=== PATIENT | male | born 1960 | race Caucasian/White ===

== ENCOUNTER 2016-06-26 14:17 | Emergency (ER) | payer BC ==
[2016-06-26 14:23] VITALS: TEMP 97.7
[2016-06-26] MEDS ORDERED: HYDROmorphONE/DILAUDID 1 MG/ML SYR IVP ONE (14:34)
[2016-06-26] MEDS ORDERED: ONDANSETRON 4 MG/2 ML VIAL IVP ONE (14:34)
--- NOTE | 2016-06-26 14:43 | EDPHY ---
H & P Stated Complaint: Kidney Stone Time Seen by Provider: 06/26/16 14:30 HPI/ROS: CHIEF COMPLAINT: right flank pain HISTORY OF PRESENT ILLNESS: 55-year-old male presents emergency department complaining of worsening right flank pain over the past 24 hours, radiates into his right lower quadrant and groin. Patient denies difficulty urinating, no fevers or chills, he reports nausea. Patient has a history of kidney stones and reports this feels similar to previous kidney stones. Patient denies loss of control of his bowel or bladder, no saddle anesthesias, no fevers. No radiation of pain down his legs, no leg weakness. REVIEW OF SYSTEMS: A comprehensive 10 point review of systems is otherwise negative aside from elements mentioned in the history of present illness. Source: Patient Exam Limitations: No limitations - Personal History Current Tetanus/Diphtheria Vaccine: Unsure Current Tetanus Diphtheria and Acellular Pertussis (TDAP): Unsure - Medical/Surgical History Hx Asthma: No Hx Chronic Respiratory Disease: No Hx Diabetes: No Hx Cardiac Disease: No Hx Renal Disease: No Hx Cirrhosis: No Hx Alcoholism: No Hx HIV/AIDS: No Hx Splenectomy or Spleen Trauma: No Other PMH: Kidney stones, L4-5 disc reconstruction, GERD, anxiety, chronic back pain, osteoarthritis r knee - Social History Smoking Status: Never smoked - Physical Exam Exam: Physical Exam Gen: Alert and Oriented, grimacing HEENT: PERRL, moist mucous membranes NECK: no meningismus CV: regular rate and regular rhythm PULM: CTAB, no wheezes ABDOMEN: Right lower quadrant tenderness to palpation BACK: Right CVA tenderness NEURO: Neurologically grossly intact EXTREMITIES: normal appearing SKIN: no rash or break in skin on exposed skin PSYCH: answers questions appropriately. Constitutional: Initial Vital Signs Temperature (C) 36.5 C 06/26/16 14:19 Heart Rate 63 06/26/16 14:19 Respiratory Rate 30 H 06/26/16 14:19 Blood Pressure 169/96 H 06/26/16 14:19 O2 Sat (%) 100 06/26/16 14:19 O2 Delivery Mode Room Air Allergies/Adverse Reactions: No Known Allergies Allergy (Verified 05/27/15 16:09) Home Medications: Medication Instructions Recorded ESTAZOLAM 09/23/14 Esomeprazole Magnesium [Nexium] 20 mg PO BID 09/23/14 Etodolac 09/23/14 Hydrocodone/APAP 5/325 [[place]ster 1 - 2 tab PO Q4H PRN #20 tab 09/23/14 5/325 (RX)] Hydrocodone/Acetaminophen 1 each PO 09/23/14 [Hydrocodon-Acetaminophen 5-325] Methocarbamol [Robaxin] 750 mg PO QID 09/23/14 Amoxicillin/Clavulanate Pot 875 mg PO BID 10 Days 05/27/15 [Augmentin 875Mg] Lidocaine 2% Viscous [Lidocaine 2% 5 ml PO Q6 PRN #120 ml 05/27/15 Viscous (RX)] guaiFENesin/CODEINE PHOS 5 - 10 ml PO HS #120 ml 05/27/15 [Robitussin AC] Hydrocodone/APAP 5/325 [[place] 1 tab PO Q4H PRN #7 tab 06/26/16 5/325] Ondansetron Odt [Zofran Odt] 4 mg PO Q6-8PRN PRN #8 tab 06/26/16 Tamsulosin HCl [Flomax 0.4 MG (*)] 0.4 mg PO DAILY #7 cap 06/26/16 Medical Decision Making ED Course/Re-evaluation: IV established, chemistry panel obtained, patient was given 1 mg of Dilaudid IV and 4 mg of Zofran IV. I have ordered a urinalysis. Patient is aware we need a urine sample. Urine shows 25-50 RBCs, no WBCs. Patient reports pain is down to 3/10 after Dilaudid and Zofran. Patient is given 15 mg of IV Toradol. He will be discharged home with Chester, Flomax, Zofran and Urology for follow-up. Patient is given strict return precautions. I doubt a infected stone due to patient's presentation. I have not ordered any imaging as the patient has a history of kidney stones and feels this is the same. - Data Points Laboratory Results: Laboratory Results 06/26/16 14:42 06/26/16 06/26/16 15:10 14:42 Sodium 144 mEq/L mEq/L (134-144) Potassium 3.9 mEq/L mEq/L (3.5-5.2) Chloride 107 mEq/L mEq/L (97-110) Carbon Dioxide 22 mEq/l mEq/l (22-31) Anion Gap 15 mEq/L mEq/L (8-16) BUN 15 mg/dL mg/dL (7-23) Creatinine 0.9 mg/dL mg/dL (0.7-1.3) Estimated GFR > 60 Glucose 148 mg/dL H mg/dL (70-100) Calcium 10.0 mg/dL mg/dL (8.5-10.4) Urine Color YELLOW Urine Appearance CLEAR Urine pH 7.0 (5.0-7.5) Ur Specific [place] 1.016 (1.002-1.030) Urine Protein NEGATIVE (NEGATIVE) Urine Ketones NEGATIVE (NEGATIVE) Urine Blood 2+ H (NEGATIVE) Urine Nitrate NEGATIVE (NEGATIVE) Urine Bilirubin NEGATIVE (NEGATIVE) Urine Urobilinogen NEGATIVE EU EU (0.2-1.0) Ur Leukocyte Esterase NEGATIVE (NEGATIVE) Urine RBC 25-50 /hpf H /hpf (0-3) Urine WBC 1-3 /hpf /hpf (0-3) Ur Epithelial Cells NONE SEEN /lpf /lpf (NONE-1+) Urine Mucus TRACE /lpf /lpf (NONE-1+) Ur Culture Indicated? NOT INDICATED (NI) Urine Glucose NEGATIVE (NEGATIVE) Medications Given: Discontinued Medications Hydromorphone HCl (Dilaudid) 1 mg IVP EDNOW ONE Stop: 06/26/16 14:35 Last Admin: 06/26/16 14:45 Dose: 1 mg Ketorolac Tromethamine (Toradol) 15 mg IVP EDNOW ONE Stop: 06/26/16 15:27 Last Admin: 06/26/16 15:33 Dose: 15 mg Ondansetron HCl (Zofran) 4 mg IVP EDNOW ONE Stop: 06/26/16 14:35 Last Admin: 06/26/16 14:55 Dose: 4 mg Departure - Departure Disposition: Home, Routine, Self-Care Clinical Impression: Acute right flank pain Condition: Good Instructions: Kidney Stones (ED), Flank Pain (ED) Additional Instructions: Kidney stone: Take Chester as needed for severe pain. Use Zofran as needed for nausea. Take ibuprofen 600 mg every 6-8 hours as needed for moderate pain. This will also help with inflammation. Take Flomax as directed. Followup with urology as directed for symptoms not improving. Strain urine. Return to the emergency department if you have worsening pain, fevers, persistent vomiting, or other concerns. 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
[2016-06-26 15:09] LABS: ANION GAP 15 mEq/L (8-16); CARBON DIOXIDE 22 mEq/l (22-31); CHLORIDE 107 mEq/L (97-110); CREATININE 0.9 mg/dL (0.7-1.3); GLOMERULAR FILTRATION RATE > 60; GLUCOSE 148 mg/dL (70-100); POTASSIUM 3.9 mEq/L (3.5-5.2); SODIUM 144 mEq/L (134-144)
[2016-06-26 15:24] LABS: COLOR YELLOW; LEUKOCYTE ESTERASE,URINE NEGATIVE (NEGATIVE); NITRITE,URINE NEGATIVE (NEGATIVE)
[2016-06-26] MEDS ORDERED: KETOROLAC 15 MG/1 ML SDV IVP ONE (15:26)
[2016-06-26 15:31] LABS: MUCUS TRACE /lpf (NONE-1+); RBC,URINE 25-50 /hpf (0-3)
[2016-06-26 15:56] VITALS: BP 133/84; PULSE 71; RESP 14; O2SAT 95
== END 2016-06-26 16:09 | disposition home or self-care (01) ==
DX: R10.9 Unspecified abdominal pain (principal)
CPT/HCPCS: 96374; J1170; J1885; J2405

== ENCOUNTER 2016-07-01 17:37 | Inpatient (IN) | payer BC ==
--- NOTE | 2016-07-01 17:50 | CPEKG ---
Heart Rate: 43 RR Interval: 1395 P-R Interval: 184 QRSD Interval: 98 QT Interval: 496 QTC Interval: 420 P Preston: 40 QRS Preston: -22 T Wave Preston: 23 EKG Severity - OTHERWISE NORMAL ECG - EKG Impression: SINUS BRADYCARDIA EKG Impression: BORDERLINE LEFT AXIS DEVIATION Electronically Signed By: Hood Flynn 01-Jul-2016 17:58:41
--- NOTE | 2016-07-01 17:54 | EDPHY ---
H & P Time Seen by Provider: 07/01/16 17:40 HPI/ROS: CHIEF COMPLAINT: Bradycardia HISTORY OF PRESENT ILLNESS: Patient is a 55-year-old man who was sent to the emergency department for bradycardia. He had knee surgery today and an postoperative care his heart rate was ranging between 40 and 60. He states that his baseline heart rate is around 60. He has been worked up several times for this in the past with no obvious cause. During the surgery he did receive fentanyl, tests Xiomara and propofol all of which can cause bradycardia. He is asymptomatic. He denies chest pain. He denies shortness of breath. He denies lightheadedness. He does not take any blood pressure medications. His blood pressure is 130/60. His oxygen saturations are 99% on 2 L nasal cannula. REVIEW OF SYSTEMS: Constitutional: denies: chills, fever, recent illness, recent injury EENTM: denies: blurred vision, double vision, nose congestion Respiratory: denies: cough, shortness of breath Cardiac: See HPI Gastrointestinal/Abdominal: denies: abdominal pain, diarrhea, nausea, vomiting, blood streaked stools Genitourinary: denies: dysuria, frequency, hematuria, pain Musculoskeletal: denies: joint pain, muscle pain Skin: denies: lesions, rash, jaundice, bruising Neurological: denies: headache, numbness, paresthesia, tingling, dizziness, weakness Hematologic/Lymphatic: denies: blood clots, easy bleeding, easy bruising Immunologic/allergic: denies: HIV/AIDS, transplant EXAM: GENERAL: Well-appearing, well-nourished and in no acute distress. HEAD: Atraumatic, normocephalic. EYES: Pupils equal round and reactive to light, extraocular movements intact, sclera anicteric, conjunctiva are normal. ENT: TMs normal, nares patent, oropharynx clear without exudates. Moist mucous membranes. NECK: Normal range of motion, supple without lymphadenopathy or JVD. LUNGS: Breath sounds clear to auscultation bilaterally and equal. No wheezes rales or rhonchi. HEART: Bradycardic ABDOMEN: Soft, nontender, normoactive bowel sounds. No guarding, no rebound. No masses appreciated. BACK: No CVA tenderness, no spinal tenderness, step-offs or deformities EXTREMITIES: Normal range of motion, no pitting or edema. No clubbing or cyanosis. NEUROLOGICAL: Cranial nerves II through XII grossly intact. Normal speech, normal gait. 5/5 strength, normal movement in all extremities, normal sensation PSYCH: Normal mood, normal affect. SKIN: Warm, dry, normal turgor, no visible rashes or lesions. Source: Patient Exam Limitations: No limitations - Medical/Surgical History Hx Asthma: No Hx Chronic Respiratory Disease: No Hx Diabetes: No Hx Cardiac Disease: No Hx Renal Disease: No Hx Cirrhosis: No Hx Alcoholism: No Hx HIV/AIDS: No Hx Splenectomy or Spleen Trauma: No Other PMH: Kidney stones, L4-5 disc reconstruction, GERD, anxiety, chronic back pain, osteoarthritis r knee - Family History Significant Family History: No pertinent family hx - Social History Smoking Status: Never smoked Alcohol Use: Sober Constitutional: Initial Vital Signs Temperature (C) 36.7 C 07/01/16 17:37 Heart Rate 81 07/01/16 17:37 Respiratory Rate 10 L 07/01/16 17:37 Blood Pressure 133/89 H 07/01/16 17:37 O2 Sat (%) 94 07/01/16 17:37 O2 Delivery Mode Room Air Allergies/Adverse Reactions: No Known Allergies Allergy (Verified 05/27/15 16:09) Home Medications: Medication Instructions Recorded ESTAZOLAM 09/23/14 Esomeprazole Magnesium [Nexium] 20 mg PO BID 09/23/14 Etodolac 09/23/14 Hydrocodone/APAP 5/325 [[place] 1 - 2 tab PO Q4H PRN #20 tab 09/23/14 5/325 (RX)] Hydrocodone/Acetaminophen 1 each PO 09/23/14 [Hydrocodon-Acetaminophen 5-325] Methocarbamol [Robaxin] 750 mg PO QID 09/23/14 Amoxicillin/Clavulanate Pot 875 mg PO BID 10 Days 05/27/15 [Augmentin 875Mg] Lidocaine 2% Viscous [Lidocaine 2% 5 ml PO Q6 PRN #120 ml 05/27/15 Viscous (RX)] guaiFENesin/CODEINE PHOS 5 - 10 ml PO HS #120 ml 05/27/15 [Robitussin AC] Hydrocodone/APAP 5/325 [[place] 1 tab PO Q4H PRN #7 tab 06/26/16 5/325] Ondansetron Odt [Zofran Odt] 4 mg PO Q6-8PRN PRN #8 tab 06/26/16 Tamsulosin HCl [Flomax 0.4 MG (*)] 0.4 mg PO DAILY #7 cap 06/26/16 Medical Decision Making - Diagnostics EKG Interpretation: An EKG obtained and was read and documented in trace view. Please see trace view for full reading and report. sinus bradycardia, no acute ischemic changes ED Course/Re-evaluation: The patient is asymptomatic. He does have bradycardia which we will observe. I feel this will likely resolve as the medications used for sedation wear off. EKG is unremarkable other than the bradycardia. We will send lab work as well. He is not showing signs of PE. 7:00 p.m. the patient's symptoms continue. His heart rate is 39 to 50. He denies chest pain or shortness of breath. His is now in the room. She states that he has actually been lightheaded and presyncopal several times at home over the last few months. They thought that it was possibly due to his acoustic neuroma. However now they are wondering if it is due to undiagnosed bradycardia. We agreed to admission and telemetry monitoring and likely cardiology consultation. Also the patient's states that he did not have this reaction 1 year ago after his knee surgery then. Differential Diagnosis: Partial list of the Differential diagnosis considered include but were not limited to; bradycardia, acute coronary disease, PE, medication reaction and although unlikely based on the history and physical exam, I also considered dissection, atrial fibrillation. - Data Points Laboratory Results: Laboratory Results 07/01/16 17:55 07/01/16 17:55 07/01/16 07/01/16 17:55 17:55 WBC 10.69 10^3/uL H 10^3/uL (3.80-9.50) RBC 4.74 10^6/uL 10^6/uL (4.40-6.38) Hgb 14.4 g/dL g/dL (13.7-17.5) Hct 41.6 % % (40.0-51.0) MCV 87.8 fL fL (81.5-99.8) MCH 30.4 pg pg (27.9-34.1) MCHC 34.6 g/dL g/dL (32.4-36.7) RDW 13.2 % % (11.5-15.2) Plt Count 242 10^3/uL 10^3/uL (150-400) MPV 10.2 fL fL (8.7-11.7) Neut % (Auto) 90.1 % H % (39.3-74.2) Lymph % (Auto) 8.1 % L % (15.0-45.0) [place] % (Auto) 1.0 % L % (4.5-13.0) Eos % (Auto) 0.1 % L % (0.6-7.6) Baso % (Auto) 0.1 % L % (0.3-1.7) Nucleat RBC Rel Count 0.0 % % (0.0-0.2) Absolute Neuts (auto) 9.63 10^3/uL H 10^3/uL (1.70-6.50) Absolute Lymphs (auto) 0.87 10^3/uL L 10^3/uL (1.00-3.00) Absolute Monos (auto) 0.11 10^3/uL L 10^3/uL (0.30-0.80) Absolute Eos (auto) 0.01 10^3/uL L 10^3/uL (0.03-0.40) Absolute Basos (auto) 0.01 10^3/uL L 10^3/uL (0.02-0.10) Absolute Nucleated RBC 0.00 10^3/uL 10^3/uL (0-0.01) Immature Gran % 0.6 % % (0.0-1.1) Immature Gran # 0.06 10^3/uL 10^3/uL (0.00-0.10) Sodium 139 mEq/L mEq/L (134-144) Potassium 4.1 mEq/L mEq/L (3.5-5.2) Chloride 106 mEq/L mEq/L (97-110) Carbon Dioxide 24 mEq/l mEq/l (22-31) Anion Gap 9 mEq/L mEq/L (8-16) BUN 15 mg/dL mg/dL (7-23) Creatinine 0.8 mg/dL mg/dL (0.7-1.3) Estimated GFR > 60 Glucose 140 mg/dL H mg/dL (70-100) Calcium 9.1 mg/dL mg/dL (8.5-10.4) Troponin I < 0.012 ng/mL ng/mL (0-0.034) Departure - Departure Disposition: [facility] Inpatient Acute Clinical Impression: Bradycardia Condition: Fair Instructions: Bradycardia (ED)
[2016-07-01 18:03] LABS: % IMMATURE GRANULYOCYTES 0.6 % (0.0-1.1); ABSOLUTE IMMATURE GRANULOCYTES 0.06 10^3/uL (0.00-0.10); ADD DIFF? NO; ADD MORPH? NO; ADD SCAN? NO; ATYPICAL LYMPHOCYTE FLAG 0 (0-99); FRAGMENT RBC FLAG 0 (0-99); HEMATOCRIT 41.6 % (40.0-51.0); HEMOGLOBIN 14.4 g/dL (13.7-17.5); LEFT SHIFT FLG 0 (0-99); LIPEMIA HEMOLYSIS FLAG 90 (0-99); MEAN CELL HEMOGLOBIN 30.4 pg (27.9-34.1); MEAN CELL HEMOGLOBIN CONCENTR. 34.6 g/dL (32.4-36.7); MEAN CELL VOLUME 87.8 fL (81.5-99.8); MEAN PLATELET VOLUME 10.2 fL (8.7-11.7); PLATELET CLUMPS FLAG 0 (0-99); PLATELET COUNT 242 10^3/uL (150-400); RED BLOOD CELL COUNT 4.74 10^6/uL (4.40-6.38); RED CELL DISTRIBUTION WIDTH 13.2 % (11.5-15.2)
[2016-07-01 18:18] LABS: ANION GAP 9 mEq/L (8-16); CALCIUM 9.1 mg/dL (8.5-10.4); CARBON DIOXIDE 24 mEq/l (22-31); CHLORIDE 106 mEq/L (97-110); CREATININE 0.8 mg/dL (0.7-1.3); GLOMERULAR FILTRATION RATE > 60; GLUCOSE 140 mg/dL (70-100); POTASSIUM 4.1 mEq/L (3.5-5.2); SODIUM 139 mEq/L (134-144)
[2016-07-01 18:30] LABS: TROPONIN I < 0.012 ng/mL (0-0.034)
[2016-07-01] MEDS ORDERED: ACETAMINOPHEN 325 MG TAB PO PRN (21:23)
[2016-07-01] MEDS ORDERED: ONDANSETRON DISINTEGRATING 4 MG TAB PO PRN (21:23)
[2016-07-01] MEDS ORDERED: ONDANSETRON 4 MG/2 ML VIAL IVP PRN (21:23)
[2016-07-01] MEDS ORDERED: GABAPENTIN 300 MG CAP PO PRN (21:27)
[2016-07-01] MEDS ORDERED: METHOCARBAMOL 750 MG TAB PO PRN (21:27)
--- NOTE | 2016-07-01 21:55 | GHP ---
[f rep st] HISTORY AND PHYSICAL DATE OF ADMISSION: 07/01/2016 CHIEF COMPLAINT: Bradycardia. HISTORY OF PRESENT ILLNESS: A 55-year-old male with a history of obstructive sleep apnea, which has been untreated. He apparently has been having episodes of dizziness at home and excessive sleepine ss and fatigue. He had outpatient knee surgery today and afterwards was bradycardic. He remained t hat way and Anesthesiology sent him into emergency department. In the emergency department, he has remained with heart rate in the 40s. He does say he did have some chest pressure during his bradyca rdia and has improved though it is not completely gone. He has not had any fevers or chills. He purvis s no previous cardiac history. He also was recently diagnosed with both kidney stones and gallstone s. He had obstructive sleep apnea diagnosis prior and was using CPAP but has been off it for some t [place] and had a repeat sleep study, which again showed obstructive sleep apnea per patient's . REVIEW OF SYSTEMS: A 10-point review of systems was obtained and other than stated above is negativ e. PAST MEDICAL HISTORY: 1. Acoustic neuroma. 2. Osteoarthritis. 3. Severe GERD. MEDICATIONS: Reviewed. SOCIAL HISTORY: No smoking or alcohol, is . FAMILY HISTORY: Congestive heart failure in his father. PHYSICAL EXAM: VITAL SIGNS: Afebrile, blood pressure is 124/76, heart rate is in the 40s to low 50 s, oxygen saturation 99% on 2 L. GENERAL: The patient is well developed, in no apparent distress. HEENT: Nonicteric sclerae. Extraocular movements intact. Moist mucous membranes. NECK: Supple. No thyromegaly. LUNGS: Good air effort. Clear to auscultation bilaterally. CARDIOVASCULAR: Re gular rate and rhythm. No murmurs or gallops. ABDOMEN: Positive bowel sounds. Soft, nontender, n ondistended. No hepatosplenomegaly. EXTREMITIES: No clubbing, cyanosis, or edema. SKIN: Without rash. Dry, intact. NEURO: Alert and oriented x3. Moving all 4 extremities equally. PSYCH: Nor mal mood and affect. LABORATORY DATA: Chemistries normal. Troponin is negative. CBC is essentially normal. EKG person ally reviewed and interpreted shows sinus bradycardia. ASSESSMENT: This is a 55-year-old male presenting with bradycardia and chest pain. PLAN: 1. The patient will be admitted under telemetry. I will get an echocardiogram. Because he is havi ng continued chest pressure, I will give an aspirin and probably get stress testing in the morning i f cardiac enzymes are negative. Will have Cardiology see the patient as well. 2. Admission. The patient will be admitted under observation status. Case discussed with the ER shukri rivera. EKG was personally reviewed and interpreted. /[id number]/MODL
[2016-07-01] MEDS: NAPROXEN SODIUM 220 MG TAB PO SCH (22:20)
[2016-07-01] MEDS: ASPIRIN 325 MG TAB PO SCH (22:21)
[2016-07-01] MEDS: PANTOPRAZOLE SODIUM 40 MG TAB PO SCH (23:13)
[2016-07-01] MEDS: HYDROCODONE/APAP 5/325 TAB PO PRN (23:13)
[2016-07-01] MEDS: traZODone 50 MG TAB PO SCH (23:25)
[2016-07-02 05:24] LABS: % IMMATURE GRANULYOCYTES 0.6 % (0.0-1.1); ABSOLUTE IMMATURE GRANULOCYTES 0.07 10^3/uL (0.00-0.10); ADD DIFF? NO; ADD MORPH? NO; ADD SCAN? NO; ATYPICAL LYMPHOCYTE FLAG 0 (0-99); FRAGMENT RBC FLAG 0 (0-99); LEFT SHIFT FLG 0 (0-99); LIPEMIA HEMOLYSIS FLAG 90 (0-99); MEAN CELL HEMOGLOBIN 30.6 pg (27.9-34.1); MEAN CELL VOLUME 87.3 fL (81.5-99.8); MEAN PLATELET VOLUME 10.6 fL (8.7-11.7); PLATELET CLUMPS FLAG 0 (0-99); PLATELET COUNT 249 10^3/uL (150-400); RED BLOOD CELL COUNT 4.58 10^6/uL (4.40-6.38); RED CELL DISTRIBUTION WIDTH 13.2 % (11.5-15.2)
[2016-07-02 05:41] LABS: ALANINE AMINOTRANSFERASE 37 IU/L (21-72); ALBUMIN 3.7 g/dL (3.5-5.0); ALKALINE PHOSPHATASE 52 IU/L (38-126); ANION GAP 8 mEq/L (8-16); ASPARTATE AMINOTRANSFERASE 15 IU/L (17-59); BILIRUBIN,TOTAL 0.5 mg/dL (0.1-1.4); CARBON DIOXIDE 26 mEq/l (22-31); CHLORIDE 106 mEq/L (97-110); CREATININE 0.8 mg/dL (0.7-1.3); GLOMERULAR FILTRATION RATE > 60; GLUCOSE 154 mg/dL (70-100); POTASSIUM 4.1 mEq/L (3.5-5.2); SODIUM 140 mEq/L (134-144)
[2016-07-02 05:50] LABS: TROPONIN I < 0.012 ng/mL (0-0.034)
[2016-07-02] MEDS: NAPROXEN SODIUM 220 MG TAB PO SCH ×2 (09:12→23:01)
[2016-07-02] MEDS: ASPIRIN 325 MG TAB PO SCH (09:12)
[2016-07-02] MEDS: PANTOPRAZOLE SODIUM 40 MG TAB PO SCH (09:13)
[2016-07-02] MEDS: HYDROCODONE/APAP 5/325 TAB PO PRN ×3 (11:31→23:01)
[2016-07-02] MEDS ORDERED: REGADENOSON 0.4 MG/5 ML SYR IVP ONE (14:07)
--- NOTE | 2016-07-02 15:04 | PDCARST ---
CAR Stress Test Results Type of Stress Test: Lexiscan stress test Indication: abn ecg/dizziness Description of Procedure: After informed consent was obtained, pt was established to ECG, bp, HR, and oximetry monitoring. At baseline, pt has SB HR 51, BP 150/70, and normal oximetry. Lexiscan was infused with typical side effects. There were no significant changes to ECG. HR increased to 70. BP remained unchanged. Impression: Uneventful Lexiscan infusion. Conclusion: Await nuclear images.
--- NOTE | 2016-07-02 16:29 | HOSPPROG ---
Hospitalist Progress Note Assessment/Plan: # bradycardia/dizziness/fatigue - ppm tomorrow # ?apical thinning vs inferior infarct - echo pending, consideration of possible LHC tomorrow # knee surgery POD#2 # acoustic neuroma # FCFT ## lexiscan reviewed discussed with Dr Hernandez - ppm tomorrow Subjective: ongoing bradycardia; ongoing fatigue Objective: Vital Signs Temp Pulse Resp BP Pulse Ox 36.8 C 46 L 18 119/71 95 07/02/16 15:21 07/02/16 15:21 07/02/16 15:21 07/02/16 15:21 07/02/16 15:21 Laboratory Results 07/02/16 04:37 07/02/16 04:37 07/01/16 07/02/16 07/03/16 05:59 05:59 05:59 Intake Total 400 Output Total 200 Balance 200 - Physical Exam Constitutional: no apparent distress, appears nourished Cardiovascular: no murmur, rub, or gallop, bradycardia Respiratory: no respiratory distress, no rales or rhonchi, clear to auscultation Gastrointestinal: normoactive bowel sounds, soft, non-tender abdomen, no palpable masses ICD10 Worksheet Patient Problems: Problems Problem Status Onset Bradycardia Acute
--- NOTE | 2016-07-02 16:36 | ECHO ---
[id number] + + [address] : : [place] [address] : : [phone] + + Adult Echocardiographic Report + + :Name: OMER LUJAN Date: 07/02/2016 08:57 AM BP: 106/ 76 mmHg : : Hospital Admission Number: [id number] Location: 214: :: 1960 Gender: Male : :Age: 55 yrs Race: WH : :Reason For Study: bradycardia : :History: bradycardia : + + MMode/2D Measurements \T\ Calculations IVSd: 1.2 cm RVDd: 3.1 cm FS: 44.7 % Ao root diam: 3.2 cm LVPWd: 0.97 cm LVIDd: 5.4 cm EDV(Teich): 140.0 ml LA dimension: 3.3 cm LVIDs: 3.0 cm ESV(Teich): 34.3 ml EF(Teich): 75.5 % Normal Measurement Values: + + :LVIDd (3.5-5.7cm) IVSd (0.6-1.1cm) LVPWd (0.6-1.1cm) Aortic Root (2.0-3.7cm)Left Atrium (1.5-4.0cm): :LV Vol(d) (76-115ml) LV Vol(s) (29-48ml) Ejec Fraction (50-65%)PV Vinnie (0.6- 1.2m/s) TV Vinnie (0.4-1.0m/s) : :MV E Vinnie (0.8-1.0m/s)MV A Vinnie (0.3-1.0m/s)LVOT Vinnie (0.7-1.2m/s) Asc Ao Vinnie ( 0.9-1.8m/s) : + + Doppler Measurements \T\ Calculations MV E max vinnie: Ao V2 max: LV V1 max: PA V2 max: 118.0 cm/sec 173.7 cm/sec 93.3 cm/sec 86.9 cm/sec MV A max vinnie: Ao max PG: LV V1 max PG: PA max P.9 cm/sec 12.1 mmHg 3.5 mmHg 3.0 mmHg MV E/A: 2.5 MV dec time: 0.32 sec TR max vinnie: 259.4 cm/sec TR max P.9 mmHg RAP systole: 5.0 mmHg RVSP(TR): 31.9 mmHg Left Ventricle The left ventricle is normal in size and function. There is normal left ventricular wall thickness. Ejection Fraction = 70%. No regional wall motion abnormalities noted. Right Ventricle The right ventricle is normal in size and function. Atria The left atrial size is normal. Right atrial size is normal. Mitral Valve The mitral valve is normal in structure and function. There is no mitral valve stenosis. There is trace to mild mitral regurgitation. Tricuspid Valve The tricuspid valve is normal in structure and function. There is no tricuspid stenosis. There is mild tricuspid regurgitation. Right ventricular systolic pressure is 32mmHg. Aortic Valve Cannot rule out bicuspid aortic valve with raphe. There is no aortic stenosis. Mild aortic regurgitation. Pulmonic Valve The pulmonic valve is normal in structure and function. Great Vessels The aortic root is normal size. Pericardium/Pleural There is no pericardial effusion. Conclusion Technically difficult due to patient being supine due to knee surgery yesterday. The left ventricle is normal in size and function. Ejection Fraction = 70%. Trace to mild mitral regurgitation, mild MR, mild AI Right ventricular systolic pressure is 32mmHg. Cannot rule out bicuspid aortic valve with raphe. Recommend : Repeat echocardiogram in one year to eval for bicuspid aortic valve. Final Reading Physician: Charles Donahue signed on 07/02/2016 04:34 PM Ordering Physician: Antoni George Performed By: Xenia Siddiqi
[2016-07-02] MEDS ORDERED: HEPARIN 5,000 UNIT/0.5 ML SYR SC ONE (17:00)
[2016-07-02] MEDS ORDERED: NITROGLYCERIN 0.4 MG BTL SL PRN (18:14)
[2016-07-02] MEDS ORDERED: TEMAZEPAM 15 MG CAP PO PRN (18:14)
--- NOTE | 2016-07-02 18:52 | GDS ---
[f rep st] DISCHARGE SUMMARY This is a 55-year-old male with a past history of obstructive sleep apnea (untreated) who has been f eeling very tired and fatigued with excessive sleepiness and dizziness for the past 2 months. The p atient believed that it was due to his ongoing acoustic neuroma which he has had for a long, long ti me. He was having outpatient elective surgery on the knee yesterday when he was noted to be bradyca rdic and a rate of 30s. He remained that way pre and postprocedure and he was sent to the emergency room by the Anesthesiologist. In the emergency room, his heart rate remained low and he was admitt ed. He mentioned there was some chest pressure during his bradycardia, which eventually improved. The patient was kept overnight. No troponin elevation was noted. The next morning, the patient con tinued to be fatigued and tired; however, whenever his heart rate went up to 80 he was feeling extre walt well. He mentioned that the level of fatigue he is feeling when he at a heart rate of 30s whic h he has been feeling at home for the past 2 months. He did pass out once in the recent past when h e passed a kidney stone. He mentioned that he has passed multiple kidney stones; however, he has ne amara passed out except for this time. He has no previous cardiac history. He has sleep apnea and purvis s been off CPAP. REVIEW OF SYSTEMS: Other than the above, is negative. PAST MEDICAL HISTORY: Acoustic neuroma, osteoarthritis, severe GERD. MEDICATIONS AT HOME: Nexium. SOCIAL HISTORY: Nonsmoker. No alcohol use. FAMILY HISTORY: Congestive heart failure in his father. PHYSICAL EXAM: VITAL SIGNS: Blood pressure 124/76, pulse of 40, dipping down into the 30s on occas ion. Saturation is 99%. GENERAL: Patient is well developed, in no apparent distress. HEENT: Ani cteric sclerae. Moist mucous membranes. NECK: Supple. No thyromegaly. CHEST: Good air entry bi laterally equal. No rales, rhonchi or rub. HEART: S1, S2 regular. No S3, no murmurs. ABDOMEN: S oft, nontender. No guarding, rigidity, rebound. Bowel sounds present. EXTREMITIES: No edema, cya nosis or clubbing. Skin without rash. Skin is dry and intact. NEURO: Alert and oriented x3. LAB VALUES: EKG shows normal sinus rhythm and bradycardia. Lab values normal. Echocardiogram shows normal EF, mild MR, mild AI, questionable bicuspid aortic valve. Stress test was performed today which shows normal EF; however, there is apical infarct versus thinn ing with mild dilatation of the left side. IMPRESSION AND PLAN: This is a 55-year-old male with asymptomatic bradycardia which improves when t he heart rate goes up. It is surprising that at this young age he is having the sinus bradycardia; however, based on a 2 month history of fatigue, excessive sleepiness which improved when his heart r ate went up, is indicated for symptomatic bradycardia in high 30s and 40s. Hence, a pacemaker would be indicated (class I indication). I have explained to him the risks, benefits of the procedure. He understands that and is agreeable to it. The patient did have chest pressure with bradycardia and then on his stress test he appears to have an apical thinning and mild LV dilatation. Hence, a cardiac catheterization would be recommended be cause of intermediate probability of coronary artery disease. The chest pressure was at rest and so there is a question for unstable angina though the patient is symptom-free right now. In view of t he stress test and the chest pressure with low heart rate, coronary artery disease needs to be furth er evaluated and hence, cardiac catheterization will be recommended. I have explained the risks and benefits to the patient. He understands and is agreeable to it. We will plan for the same prior t o his pacemaker implant. Thank you for letting me participate in the patient's care. Feel free to contact with for any [employer]. /[id number]/MODL
[2016-07-02] MEDS: traZODone 50 MG TAB PO SCH (23:02)
[2016-07-03 04:55] LABS: % IMMATURE GRANULYOCYTES 0.3 % (0.0-1.1); ABSOLUTE IMMATURE GRANULOCYTES 0.03 10^3/uL (0.00-0.10); ADD DIFF? NO; ADD MORPH? NO; ADD SCAN? NO; ATYPICAL LYMPHOCYTE FLAG 0 (0-99); FRAGMENT RBC FLAG 0 (0-99); HEMATOCRIT 38.6 % (40.0-51.0); HEMOGLOBIN 13.1 g/dL (13.7-17.5); LEFT SHIFT FLG 0 (0-99); LIPEMIA HEMOLYSIS FLAG 90 (0-99); MEAN CELL HEMOGLOBIN 30.5 pg (27.9-34.1); MEAN CELL HEMOGLOBIN CONCENTR. 33.9 g/dL (32.4-36.7); MEAN PLATELET VOLUME 10.6 fL (8.7-11.7); PLATELET CLUMPS FLAG 0 (0-99); PLATELET COUNT 218 10^3/uL (150-400); RED BLOOD CELL COUNT 4.29 10^6/uL (4.40-6.38); RED CELL DISTRIBUTION WIDTH 13.2 % (11.5-15.2)
[2016-07-03 05:07] LABS: APTT 27.7 SEC (23.0-38.0); INR 1.03 (0.83-1.16); PROTIME(PATIENT) 13.4 SEC (12.0-15.0)
[2016-07-03 05:29] LABS: ALANINE AMINOTRANSFERASE 37 IU/L (21-72); ALBUMIN 3.5 g/dL (3.5-5.0); ALKALINE PHOSPHATASE 50 IU/L (38-126); ANION GAP 8 mEq/L (8-16); ASPARTATE AMINOTRANSFERASE 13 IU/L (17-59); BILIRUBIN,TOTAL 0.4 mg/dL (0.1-1.4); CALCIUM 8.6 mg/dL (8.5-10.4); CARBON DIOXIDE 26 mEq/l (22-31); CHLORIDE 107 mEq/L (97-110); CHOLESTEROL 132 mg/dL (140-220); CHOLESTEROL/HDL RATIO 3.47 RATIO (1.00-4.97); CREATININE 0.9 mg/dL (0.7-1.3); GLOMERULAR FILTRATION RATE > 60; GLUCOSE 87 mg/dL (70-100); HIGH DENSITY LIPOPROTEIN 38 mg/dL (40-65); LDL/HDL RATIO 1.79 RATIO (1.00-3.64); LOW DENSITY LIPOPROTEIN 68 mg/dL (80-100); MAGNESIUM 2.1 mg/dL (1.6-2.3); NON-HIGH DENSITY LIPOPROTEIN 94 mg/dL (90-129); SODIUM 141 mEq/L (134-144); TOTAL PROTEIN 5.8 g/dL (6.3-8.2); TRIGLYCERIDE 130 mg/dL (40-150); VERY LOW DENSITY LIPOPROTEINS 26 mg/dL (8-25)
[2016-07-03] MEDS ORDERED: NS 1,000 ML IV ONE ×2 (06:00)
[2016-07-03] MEDS ORDERED: DIAZEPAM 5 MG TAB PO ONE (06:00)
[2016-07-03] MEDS ORDERED: BACITRACIN IRRIGATION/NS 50,000 UNITS/1,000 ML BTL IRR ONE ×2 (06:00→09:39)
[2016-07-03] MEDS ORDERED: diphenhydrAMINE 25 MG CAP PO ONE ×2 (06:00→10:16)
--- NOTE | 2016-07-03 08:43 | CPEKG ---
Heart Rate: 48 RR Interval: 1250 P-R Interval: 168 QRSD Interval: 92 QT Interval: 468 QTC Interval: 419 P [place]: 19 QRS [place]: -33 T Wave [place]: 25 EKG Severity - OTHERWISE NORMAL ECG - EKG Impression: SINUS BRADYCARDIA EKG Impression: LEFT AXIS DEVIATION Electronically Signed By: Wero Gonzalez 03-Jul-2016 14:24:46
[2016-07-03] MEDS ORDERED: ceFAZolin 2 GM/DEXTROSE 100 ML IV ONE (09:39)
[2016-07-03] MEDS: NAPROXEN SODIUM 220 MG TAB PO SCH ×2 (09:51→23:48)
[2016-07-03] MEDS ORDERED: FAMOTIDINE 20 MG TAB ONE (10:17)
[2016-07-03] MEDS ORDERED: DIAZEPAM 5 MG TAB ONE (10:17)
[2016-07-03] MEDS ORDERED: ASPIRIN EC 325 MG TAB PO ONE (10:17)
[2016-07-03] MEDS: ASPIRIN 325 MG TAB PO SCH (10:51)
[2016-07-03] MEDS: PANTOPRAZOLE SODIUM 40 MG TAB PO SCH (10:52)
[2016-07-03] MEDS ORDERED: LIDOCAINE 1% 30 ML SDV ONE ×2 (10:58→11:00)
[2016-07-03] MEDS ORDERED: BUPIVACAINE 0.5% 30 ML SDV ONE (10:59)
[2016-07-03] MEDS ORDERED: MIDAZOLAM 2 MG/2 ML VIAL ONE ×3 (10:59→12:44)
[2016-07-03] MEDS ORDERED: fentaNYL 100 MCG/2 ML INJ ONE ×2 (10:59→12:33)
[2016-07-03] MEDS ORDERED: LIDO/EPI 1% **for epidural** 30 ML SDV ONE (12:24)
--- NOTE | 2016-07-03 14:27 | HOSPPROG ---
Hospitalist Progress Note Assessment/Plan: # bradycardia/dizziness/fatigue - s/p ppm today # ?apical thinning vs inferior infarct - LHC normal per initial report # knee surgery POD#3 - holding ppx given ppm placement today # acoustic neuroma # FCFT # dispo - tomorrow if no ppm complications ## echo reviewed tele personally reviewed - a-paced discussed with Dr Hernandez - cath normal, ppm placement without complications Subjective: s/p cath and ppm placement Objective: Vital Signs Temp Pulse Resp BP Pulse Ox 36.4 C 52 L 14 127/77 H 97 07/03/16 09:08 07/03/16 09:08 07/03/16 09:08 07/03/16 09:08 07/03/16 09:08 Laboratory Results 07/03/16 04:11 07/03/16 04:11 07/02/16 07/03/16 07/04/16 05:59 05:59 05:59 Intake Total 400 800 Output Total 200 Balance 200 800 PT 13.4 SEC (12.0-15.0) 07/03/16 04:11 INR 1.03 (0.83-1.16) 07/03/16 04:11 - Physical Exam Cardiovascular: regular rate and rhythym, no murmur, rub, or gallop Respiratory: no respiratory distress, no rales or rhonchi Gastrointestinal: normoactive bowel sounds, soft, non-tender abdomen, no palpable masses ICD10 Worksheet Patient Problems: Problems Problem Status Onset Bradycardia Acute
[2016-07-03] MEDS ORDERED: BISACODYL 10 MG SUPP PR PRN (14:42)
[2016-07-03] MEDS ORDERED: POLYETHYLENE GLYCOL 3350 17 GM PKT PO PRN (14:42)
[2016-07-03] MEDS ORDERED: LACTULOSE 20 GM/30 ML UDCUP PO PRN (14:42)
[2016-07-03] MEDS ORDERED: MAGNESIUM HYDROXIDE 30 ML UDCUP PO PRN (14:42)
[2016-07-03] MEDS: HYDROCODONE/APAP 5/325 TAB PO PRN ×2 (16:45→23:49)
[2016-07-03] MEDS: DULoxetine 60 MG CAP PO SCH (16:46)
[2016-07-03] MEDS: traZODone 50 MG TAB PO SCH (22:55)
[2016-07-04] MEDS: SENNOSIDES/DOCUSATE SODIUM TAB PO SCH ×2 (00:31→09:37)
[2016-07-04 04:42] LABS: % IMMATURE GRANULYOCYTES 0.4 % (0.0-1.1); ABSOLUTE IMMATURE GRANULOCYTES 0.04 10^3/uL (0.00-0.10); ADD DIFF? NO; ADD MORPH? NO; ADD SCAN? NO; ATYPICAL LYMPHOCYTE FLAG 10 (0-99); FRAGMENT RBC FLAG 0 (0-99); HEMATOCRIT 42.4 % (40.0-51.0); HEMOGLOBIN 14.5 g/dL (13.7-17.5); LEFT SHIFT FLG 0 (0-99); LIPEMIA HEMOLYSIS FLAG 90 (0-99); MEAN CELL HEMOGLOBIN 30.9 pg (27.9-34.1); MEAN CELL HEMOGLOBIN CONCENTR. 34.2 g/dL (32.4-36.7); MEAN CELL VOLUME 90.2 fL (81.5-99.8); MEAN PLATELET VOLUME 10.4 fL (8.7-11.7); PLATELET CLUMPS FLAG 0 (0-99); PLATELET COUNT 219 10^3/uL (150-400); RED CELL DISTRIBUTION WIDTH 13.2 % (11.5-15.2)
[2016-07-04 04:54] LABS: ANION GAP 9 mEq/L (8-16); CALCIUM 9.2 mg/dL (8.5-10.4); CARBON DIOXIDE 26 mEq/l (22-31); CHLORIDE 104 mEq/L (97-110); CREATININE 0.9 mg/dL (0.7-1.3); GLOMERULAR FILTRATION RATE > 60; GLUCOSE 103 mg/dL (70-100); SODIUM 139 mEq/L (134-144)
[2016-07-04 07:52] VITALS: BP 121/83; PULSE 62; RESP 10; TEMP 98.1; O2SAT 95
--- NOTE | 2016-07-04 08:48 | CPEKG ---
Heart Rate: 60 RR Interval: 1000 P-R Interval: 180 QRSD Interval: 92 QT Interval: 444 QTC Interval: 444 QRS [place]: -35 T Wave [place]: 33 EKG Severity - ABNORMAL ECG - EKG Impression: ATRIAL-PACED RHYTHM EKG Impression: LEFT AXIS DEVIATION Electronically Signed By: Wero Gonzalez 04-Jul-2016 16:14:37
--- NOTE | 2016-07-04 09:11 | PDCARPN ---
Cardiology Progress Note Chief Complaint: chronotropic incompetence Assessment/Plan: Assessment: 55M PMH untreated JOSE, acoustic neuroma, presented with bradycardia after outpatient knee surgery on day of admission. Has been noting excessive fatigue, somnolence, and dizziness over the past few months #. chronotropic incompetence s/p dual chamber [employer] Gonzalez PPM PPM check this AM with normal device function will need outpatient followup- our office will contact arm precautions reviewed await AM CXR #. possible bicuspid AV will need follow up echo in our office in ~1 year #. JOSE: will need follow up to start treatment for this will refer to Dr. Reagan or other pattern painter Plan: - 1 week wound/pacer check - echo follow up within year - refer to pulm for JOSE - reviewed with him he needs PCP (will refer to Dr. Alicia Ness) 07/04/16 09:10 Subjective: No pain over pacer site. Sleep improved overnight. Reviewed/Discussed With: hospitalist Objective: Vital Signs (8 Hrs) Temp Pulse Resp BP Pulse Ox 07/04/16 07:50 98.1 F 62 10 L 121/83 H 95 07/04/16 04:00 97.5 F 63 18 97/66 L 94 Intake/Output (24 Hrs) 07/03/16 07/04/16 07/05/16 05:59 05:59 05:59 Intake Total 800 1150 Output Total 1450 Balance 800 -300 Intake: Oral (ml) 800 200 IV Infused (ml) 950 Ns 1,000 ml @ As Directed 850 IV ONCALL ONE Rx#: [id number] ceFAZolin 2 GM/DEXTROSE 100 100 ml @ 200 mls/hr IV ONCALL ONE Rx#:[id number] Output: Urine (ml) 1450 Urinal 1450 Other: Intake Quantity No: Pt NPO Sufficient Number of Voids Urinal 1 Number of Stools Urinal 1 Result Diagrams: 07/04/16 04:24 07/04/16 04:24 EKG: personally interpreted. A-paced/ V-sensed Telemetry: A-paced Echocardiogram: EF wnl/ possible BAV - Physical Exam Constitutional: healthy appearing, no apparent distress Eyes: PERRL Ears, Nose, Mouth, Throat: moist mucous membranes Cardiovascular: regular rate and rhythm, systolic murmur Respiratory: clear to auscultate bilat Skin: no rashes, no abrasions, No fluctuance Neurologic: AAOx3 Psychiatric: cooperative, interactive ICD10 Worksheet Patient Problems: Problems Problem Status Onset Bradycardia Acute
[2016-07-04] MEDS: NAPROXEN SODIUM 220 MG TAB PO SCH (09:35)
[2016-07-04] MEDS: DULoxetine 60 MG CAP PO SCH ×2 (09:37→09:38)
[2016-07-04] MEDS: PANTOPRAZOLE SODIUM 40 MG TAB PO SCH (09:38)
[2016-07-04] MEDS: ASPIRIN 325 MG TAB PO SCH (09:38)
[2016-07-04] MEDS: HYDROCODONE/APAP 5/325 TAB PO PRN ×2 (09:42→09:50)
--- NOTE | 2016-07-04 15:44 | GDS ---
[f rep st] DISCHARGE SUMMARY DISCHARGE DIAGNOSES: 1. Chronotropic incompetence, status post dual-chamber pacemaker. 2. Possible bicuspid aortic valve. 3. Obstructive sleep apnea. 4. History of acoustic neuroma. CONSULTANTS: Omid Hernandez MD, [facility]. HOSPITAL COURSE AND STAY BY PROBLEM: 1. Bradycardia: The patient presented to the hospital reporting episodes of dizziness and was foun d to have heart rates in the 40s. He was seen by Cardiology who recommended pacemaker placement; th at was done on 07/03/2016. On day of discharge, the patient states he is feeling well. I have disc ussed the case with TRINI Nelson, from [facility] who thought it was reasonable for him to be discharged home. 2. History of a recent knee surgery: DVT prophylaxis was held in the setting of his pacemaker plac ement. His DVT prophylaxis should be resumed once cleared by Cardiology. PHYSICAL EXAMINATION ON DISCHARGE: VITAL SIGNS: Blood pressure 121/83, pulse of 62, respiratory ra te 10, O2 saturation 95% on room air. Temperature afebrile. LUNGS: Clear. ABDOMEN: Soft. EXTREMIT IES: No edema. CHEST: Pacemaker pocket wound is closed without signs of infection. PROCEDURES PERFORMED: This hospital stay, pacemaker placement done 07/03/2016, refer to report. My ocardial perfusion scan done 07/02/2016, refer to report. DISCHARGE MEDICATIONS: Please refer to discharge medication reconciliation in [facility] for details. DISCHARGE INSTRUCTIONS: The patient will be discharged from the hospital where he should follow up with Dr. Reagan, Dr. Ness and Dr. Hernandez as directed. /[id number]/MODL
--- NOTE | 2016-07-04 16:42 | EPPROC ---
Electrophysiology Procedure Note: PROCEDURE PERFORMED: * Implantation of an A/V Pacemaker * Subclavian vein angiography * Fluoroscopy INDICATION: This is a 55 yr old with symptomatic bradycardia with HR in the 40s and pt feeling extremely tired and fatigued but no syncope. Pt has been feeling so for the past few weeks. He was noted to be in sinus bradycardia when he felt tired and fatigued, when the HR increased with exercise, he felt much better. Hence it was decided to implant dual chamber pacemaker. PROCEDURE NOTE: Patient presented to the cardiac catheterization laboratory in a fasting, post absorptive state. Cardiac laborer pipeline nurse administered moderate sedation. The left infraclavicular area was prepped and draped in the usual sterile fashion. Lidocaine plus bupivacaine was used for local anesthesia. Left subclavian venography was performed by injection of iodinated contrast into the left antecubital vein. This was done to assure patency of the vein and also to assess for any anatomical aberrations. Using a combination of blunt and sharp dissection and electrocautery, the dissection was carried down to the prepectoral fascia. All bleeding was controlled with electrocautery. Fluoroscopy was utilized during the entire procedure for venous access and placement of the leads. Using the usual technique, left cephalic vein was accessed and a glidewire was placed. Through this initially a 9F and later a 7F sheath was passed. Placement of the guidewires into the venous system was confirmed by low- pressure blood return and also by visualizing the guidewires advancing into the inferior vena cava. A purse string suture was applied around the guidewires. An active fixation ventricular lead was advanced into the right ventricular apex and screwed in place. An active fixation atrial lead was advanced into the right atrial appendage and screwed in place. The peel away sheaths were removed. Pacing thresholds, sensing parameters and lead impedances were measured. There was no diaphragmatic stimulation at maximum output. The leads were sutured to the prepectoral fascia with 3 nonabsorbable sutures each. The pocket was created and it was flushed using antibiotic solution. It was inspected for any bleeding. The leads were attached to the pacemaker securely. The pacemaker was inserted into the pocket and secured in place with a nonabsorbable suture. Fluoroscopy was performed in PRIETO and JORDANIAN planes to verify right-sided placement of the leads. Also fluoroscopy of the pacemaker pocket was performed. The pacemaker pocket was closed in 3 layers with absorbable vicryl sutures. Steristrips were placed. Appropriate dressing was applied. The patient left the cardiac catheterization laboratory in stable condition. Serial Numbers: * Device: St Gonzalez Assurity MRI SN [id number] * Atrial Lead: St Gonzalez Tendril 8TC SN [id number] * Ventricular Lead: St Gonzalez Tendril 2087TC SN [id number] Stimulation Thresholds & Impedance Measurements: * Atrial Lead 3.3mV, 0.4@0.5ms, 442Ohms * Ventricular Lead 10.0mV, 0.3@0.5ms, 899 Ohms Romeo Pacing Parameters * Pacing mode: DDDR * Lower rate: 60 * Upper tracking rate: 130 * Upper sensor rate: 130 Patient Problems: Problems Problem Status Onset Bradycardia Acute
--- NOTE | 2016-07-04 16:52 | PDDXCAT ---
Diagnostic Cath Note - . Date: 07/04/16 [place] Counselor: Mary Indication: Class III or IV angina, which improves to class I/II w medical therapy, High-risk criteria on noninvasive testing (choose option below) High-risk criteria on non-invasive testing: stress echocardiographic evidence of extensive ischemia - Procedure Access: left groin Procedure: left heart catheterization, coronary angiography - Materials Left Heart Cath size: 4F Left Heart Cath materials: JL4.0 Right Heart Cath size: 5F - Findings-Left Heart Catheterization LM: Normal and divides into LAD and LCx LAD: Normal and has a moderate size diagonal which is normal. LCX: Normal with OM1 which has no significant stenosis. RCA: Normal. Complications: None Estimated blood loss: <50ml Closure method: manual pressure Assessment: Normal coronary angiogram Plan: Medical management Patient Problems: Problems Problem Status Onset Bradycardia Acute
== END 2016-07-04 13:13 | disposition home or self-care (01) | DRG 244 ==
LOC: EDUNIT# → F2W 20:06 → OBSVTOIN 07-02 16:30
PROVIDERS: ADMIT Internal Medicine; ATTEND Family Medicine
DX: I45.89 Other specified conduction disorders (principal); K21.9 Gastro-esophageal reflux disease without esophagitis; G47.33 Obstructive sleep apnea (adult) (pediatric); Z98.890 Other specified postprocedural states
CPT/HCPCS: A9500; C1760; C1785; C1898; G0378; J0690; J1644; J2250; J2785; J3010